=== PATIENT | female | born 1985 | race Caucasian/White ===

== ENCOUNTER 2016-07-16 20:20 | Emergency (ER) | payer OTHER ==
[2016-07-16 20:39] VITALS: BP 128/87; PULSE 82; RESP 16; TEMP 98.1; O2SAT 97
--- NOTE | 2016-07-16 21:15 | DX ---
Right Forearm, Two Views History: Fall skating. Findings: Right radius and ulna demonstrate no evidence of a fracture or dislocation. Impression: No evidence of right radius or ulna fracture.
--- NOTE | 2016-07-16 21:35 | UCPHY ---
[id number] complains of forearm pain extends into her elbow after fall ice skating. She describes the nature the pain is achy in the intensity is moderate baseline worse with certain movements. The incident occurred few hours prior to arrival. She explains that she slipped and fell backward extending her right hand out with a FOOSH mechanism. She has not taken any medication for her injury. ROS: HEENT no head injury musculoskeletal no neck or back pain neuro: No numbness or tingling 5 point ROS is otherwise negative. Past Medical/Surgical History: Otherwise healthy Smoking Status: Former smoker Physical Exam: Physical Exam Vital signs are normal. General: No acute distress HEENT: Atraumatic. Eyes: Pupils equal and react to light. Extraocular motions are intact. Neck: No midline tenderness she retains full range of motion. Lungs: No respiratory distress. Cardiac: Brisk capillary refill is intact throughout. Pulses are 2+ and symmetric in the affected extremity. Extremities: Atraumatic normal except for right forearm that exam reveals tenderness to the mid forearm ulnar aspect and also some tenderness to the proximal forearm around the radial head region. She retains full range of motion at the wrist with no wrist pain no wrist tenderness. She also retains full range of motion at the elbow but has increased pain with pronation versus resistance. No ecchymosis. No lacerations or abrasions. Skin: No rash or pallor. Neuro: Alert and oriented x3 with no sensorimotor deficits. The initial differential diagnosis: Radial head fracture, forearm strain, forearm contusion Constitutional: Initial Vital Signs Temperature (C) 36.7 C 07/16/16 20:31 Heart Rate 82 07/16/16 20:31 Respiratory Rate 16 07/16/16 20:31 Blood Pressure 128/87 H 07/16/16 20:31 O2 Sat (%) 97 07/16/16 20:31 O2 Delivery Mode Room Air Allergies/Adverse Reactions: Penicillins Allergy (Verified 07/16/16 20:31) Home Medications: Medication Instructions Recorded Antibiotic Unk 07/16/16 MDM/Departure - MDM Diagnostics: Forearm x-ray: Negative for fracture by my interpretation Elbow fracture: Negative for fracture by my interpretation ED Course/Re-evaluation: Luis wrap to forearm. I counseled patient regarding forearm strain - Depart Disposition: Home, Routine, Self-Care Clinical Impression: Strain of forearm, right Qualifiers: Encounter type: initial encounter Qualifier Code: (S56.911A) Strain of unspecified muscles, fascia and tendons at forearm level, right arm, initial encounter Instructions: Muscle Strain (ED) Additional Instructions: Diagnosis: Forearm strain Plan: Ice 20 minutes at a time few times a day until symptoms improve Ibuprofen-600 mg for 6 hours as needed for pain Tylenol in addition if needed Limit activity until her symptoms improve. If you have ongoing symptoms last beyond the next 7-10 days, then call Dr. Jiménez-cyber systems operations specialist for further evaluation. Referrals: [place],. [Primary Care Provider] - As per Instructions Benny Jiménez MD [Medical Doctor] - As per Instructions - PQRS PQRS Measurement: NA
--- NOTE | 2016-07-16 23:18 | DX ---
Right elbow, 3 views History: Trauma, pain, fall ice skating. Findings: Radial head and neck demonstrate no definite fracture. Proximal ulna and distal humerus als o demonstrate no definite fracture. No evidence of joint effusion. Impression: No definite fracture of the right elbow.
== END 2016-07-16 21:42 | disposition home or self-care (01) ==
LOC: CED 20:20
DX: S56.911A Strain of unspecified muscles, fascia and tendons at forearm level, right arm, initial encounter (principal); V00.211A Fall from ice-skates, initial encounter; Y93.21 Activity, ice skating
CPT/HCPCS: 73080-PO; 73090-PO; 99214-PO; G0463-PO